=== PATIENT | female | born 1985 | race African-American/Black ===

== ENCOUNTER 2017-08-03 23:04 | Emergency (ER) | payer SELFPAY ==
[~2017-08-03] VITALS: Ht 162.6 cm; Wt 50.0 kg
[~2017-08-03 23:04] MED LIST: IBUP-1008 PO
[2017-08-04] MEDS ORDERED: IBUPROFEN 600MG TABLET PO ONE (06:45)
[2017-08-04 06:52] VITALS: BP 118/75
== END 2017-08-04 06:54 | disposition home or self-care (01) ==
LOC: ER 23:30
DX: S16.1XXA Strain of muscle, fascia and tendon at neck level, initial encounter (principal); F12.10 Cannabis abuse, uncomplicated; Z88.8 Allergy status to other drugs, medicaments and biological substances; V43.52XA Car driver injured in collision with other type car in traffic accident, initial encounter; Y93.89 Activity, other specified; Y92.410 Unspecified street and highway as the place of occurrence of the external cause; Y99.8 Other external cause status
CPT/HCPCS: 99283

== ENCOUNTER 2018-03-01 18:46 | Emergency (ER) | payer SELFPAY ==
[~2018-03-01] VITALS: Ht 162.6 cm; Wt 51.1 kg
[2018-03-01] MEDS ORDERED: CEPHALEXIN 500MG CAPSULE PO ONE (22:30)
[2018-03-01] MEDS ORDERED: IBUPROFEN 600MG TABLET PO ONE (22:30)
[2018-03-01] MEDS ORDERED: TETANUS, DIPHTHERIA, PERTUSSIS VAC/PF 0.5ML (>7YR OLD) IM ONE (22:45)
[2018-03-01 23:11] VITALS: BP 102/59
== END 2018-03-01 23:45 | disposition home or self-care (01) ==
LOC: ER 18:46
DX: T22.212A Burn of second degree of left forearm, initial encounter (principal); T31.0 Burns involving less than 10% of body surface; I89.1 Lymphangitis; X19.XXXA Contact with other heat and hot substances, initial encounter; Y93.89 Activity, other specified; Y92.090 Kitchen in other non-institutional residence as the place of occurrence of the external cause; Z23 Encounter for immunization; R03.0 Elevated blood-pressure reading, without diagnosis of hypertension; F12.90 Cannabis use, unspecified, uncomplicated; Z88.8 Allergy status to other drugs, medicaments and biological substances
CPT/HCPCS: 90471; 90715; 99283